=== PATIENT | female | born 1970 | race Caucasian/White ===

== ENCOUNTER 2016-06-09 03:21 | Emergency (ER) | payer MEDICAID ==
--- NOTE | 2016-06-09 03:34 | Emergency Department Record ---
History of Present Illness - General Chief Complaint: Neck Injury/Pain Stated Complaint: NECK PAIN Time Seen by Provider: 06/09/16 03:28 Source: Patient Mode of Arrival: Ambulatory Limitations: No limitations - History of Present Illness Initial Comments: 45 yo female presents to ED with a CC of sudden-onset neck pain posteriorly;y tonight while attempting to shift in her recliner tonight. Patient is s/p cervical fusion [address] Morris. Patient reports pain described as a "tearing sensation to the back of the neck" associated with numbness, tingling to the RUE. Patient denies fevers, chills, or recent illness. 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 Patient reports that she was wearing her neck brace when her pain began. MD Complaint: Neck pain Onset/Timin -: Minutes(s) Place: Home Severity: Severe Quality: Other ("tearing") Consistency: Constant Improves With: None Worsens With: None Context: Lifting Associated Symptoms: Numbness, Tingling Treatments Prior to Arrival: None - Related Data Home Medications Medication Instructions Recorded Confirmed Last Taken Docusate Sodium [Colace] 100 mg PO BID cap 06/05/16 Unknown Oxycodone HCl #110 06/05/16 Unknown Sennosides [Senokot] 2 tab PO QD tab 06/05/16 Unknown Allergies Allergy/AdvReac Type Severity Reaction Status Date / Time chlorhexidine gluconate Allergy Intermediate RASH Verified 06/09/16 03:24 [From Hibiclens] latex Allergy Intermediate RASH Verified 06/09/16 03:24 tetracycline [Tetracycline] Allergy Intermediate NAUSEA Verified 06/09/16 03:24 Penicillins Allergy Unknown PT UNSURE Verified 06/09/16 03:24 OF REACTION Review of Systems Constitutional: Denies: Chills, Fever, Malaise, Night sweats Eyes: Denies: Eye discharge, Eye pain ENT: Denies: Congestion, Ear pain, Epistaxis Respiratory: Denies: Cough, Dyspnea Cardiovascular: Denies: Chest pain, Dyspnea on exertion Endocrine: Denies: Fatigue, Heat or cold intolerance Gastrointestinal: Denies: Abdominal pain, Nausea, Vomiting Genitourinary: Denies: Abnormal menses, Incontinence, Retention Musculoskeletal: Reports: Neck pain. Denies: Arthralgia, Back pain Skin: Denies: Bruising, Change in color Neurological: Reports: Numbness, Tingling. Denies: Abnormal gait, Confusion, Headache, Seizure, Weakness Psychiatric: Reports: Anxiety Hematological/Lymphatic: Denies: Anemia, Blood Clots Past Medical History - SOCIAL HISTORY Smoking Status: Current every day smoker - RESPIRATORY Hx Respiratory Disorders: Yes Hx Asthma: Yes Hx Bronchitis: Yes Hx COPD: Yes - CARDIOVASCULAR Hx Cardio Disorders: Yes Hx Hypertension: Yes Comment:: high cholesterol - NEURO Hx Neuro Disorders: No - GI Hx GI Disorders: No - Hx Genitourinary Disorders: No - ENDOCRINE Hx Endocrine Disorders: No - MUSCULOSKELETAL Hx Musculoskeletal Disorders: Yes - PSYCH Hx Psych Problems: Yes Hx Depression: Yes - HEMATOLOGY/ONCOLOGY Hx Hematology/Oncology Disorders: No Physical Exam - General General Appearance: Alert, Oriented x3, Cooperative, Severe distress, Other ( patient is yelling on examination in pain intermittently) Limitations: No limitations - Head Head exam: Atraumatic, Normocephalic, Normal inspection Head exam detail: negative: Abrasion, Contusion, Ash's sign, General tenderness, Hematoma, Laceration - Eye Eye exam: Normal appearance. negative: Conjunctival injection, Periorbital swelling, Periorbital tenderness, Scleral icterus - ENT Ear exam: negative: Auricular hematoma, Auricular trauma Nasal Exam: negative: Active bleeding, Discharge, Dried blood, Foreign body Mouth exam: negative: Drooling, Laceration, Muffled voice, Tongue elevation - Neck Neck exam: Other (anterior incision site is clean, dry and intact, no pain with palpation of the posterior cervical region.). negative: Meningismus, Tenderness - Respiratory Respiratory exam: Normal lung sounds bilaterally. negative: Rales, Respiratory distress, Rhonchi, Stridor, Wheezes - Cardiovascular Cardiovascular Exam: Regular rate, Normal rhythm, Normal heart sounds - GI/Abdominal GI/Abdominal exam: Soft. negative: Rebound, Rigid, Tenderness - Rectal Rectal exam: Deferred - exam: Deferred - Extremities Extremities exam: Normal inspection. negative: Pedal edema, Tenderness - Back Back exam: Denies: CVA tenderness (R), CVA tenderness (L) - Neurological Neurological exam: Alert, CN II-XII intact, Normal gait, Oriented X3. negative : Motor sensory deficit - Psychiatric Psychiatric exam: Normal affect, Normal mood - Skin Skin exam: Normal color. negative: Abrasion Type of lesion: negative: abrasion Course - Reevaluation(s) Reevaluation #1: 06/09/16 03:34 [facility] contacted for consultation. Reevaluation #2: 06/09/16 03:37 Case was discussed with Abbie (On-call Neurosurgery), recommends transfer for evaluation and possible MRI imaging of the neck. Reevaluation #3: 06/09/16 04:[address] Zarate, will accept transfer ED-ED. Patient was updated on the plan for transfer. Disposition Disposition: Transfer Clinical Impression: Post-operative pain, Numbness and tingling Disposition: Acute Care Hospital Transfer Transfer To: [facility] Reason For Transfer: Post-operative pain, Neurosurgical evalaution of post- operative pain Accepting Physician: Elliot Leiva Time Discussed w/Accepting Physician: 04:14 Condition: (2) Stable Forms: Patient Portal Access Time of Disposition: 04:14
[2016-06-09] MEDS ORDERED: HYDROMORPHONE HCL 1 MG/ML CPJ IVP ONE (03:41)
[2016-06-09] MEDS ORDERED: LORAZEPAM 2 MG/ML VIAL IV ONE (03:41)
== END 2016-06-09 04:38 | disposition short-term general hospital (02) ==
LOC: ER 03:21
DX: G89.18 Other acute postprocedural pain (principal); M54.2 Cervicalgia; R20.0 Anesthesia of skin; Z98.1 Arthrodesis status
CPT/HCPCS: 99285 ×2; 96374; 96375; J2060; J1170

== ENCOUNTER 2018-06-07 13:43 | Emergency (ER) | payer MEDICAID ==
[2018-06-07] MEDS ORDERED: 0.9 % SODIUM CHLORIDE 1,000 ML BAG IV ONE (14:21)
--- NOTE | 2018-06-07 14:22 | Emergency Department Record ---
History of Present Illness - General Chief Complaint: Syncope Stated Complaint: SYNCOPE Time Seen by Provider: 06/07/18 13:53 Source: Patient Mode of Arrival: Ambulatory Limitations: No limitations [place]posure [place] [facility] [place] 21 [place] of Symptoms: No - History of Present Illness Initial Comments: The patient is here due to not feeling well for a day. The onset was last evening when she was sitting at home and noticed the onset of lightheadedness. She then put her legs up and elevated them and felt better. Later in the evening she did become nauseated and vomited. Today the lightheadedness did return at work and she describes it as a feeling of almost passing out. There are no balance issues, visual changes, arm or leg numbness, COOLEY, neck pain, weakness, CP, SOB, palpitations, or sweating. The patient denies any recent illnesses but did take Ropinrole last evening for her restless leg syndrome. She has taken it twice in the past but did not have any side affects. MD Complaint: [place] faint Onset/Timin -: Days(s) Prodromal Symptoms: Lightheaded, Nausea/vomiting, Vertigo Injuries Sustained Associated with Event: None Current Symptoms: None Treatments Prior to Arrival: None - [place] Coma Scale Eye Response: (4) Open spontaneously Motor Response: (6) Obeys commands Verbal Response: (5) Oriented [place] Total: 15 - Related Data Home Medications Medication Instructions Recorded Confirmed Last Taken Ibuprofen [Motrin] 800 mg PO Q8H PRN 06/07/18 06/07/18 06/07/18 Previous Rx's Medication Instructions Recorded Potassium Chloride 20 meq PO DAILY #7 [email or web address] 06/07/18 Allergies Allergy/AdvReac Type Severity Reaction Status Date / Time chlorhexidine gluconate Allergy Intermediate RASH Unverified 05/19/18 10:59 [From Hibiclens] latex Allergy Intermediate RASH Unverified 05/19/18 10:59 tetracycline [Tetracycline] Allergy Intermediate NAUSEA Unverified 05/19/18 10: 59 Penicillins Allergy Unknown PT UNSURE Unverified 05/19/18 10:59 OF REACTION codeine phosphate AdvReac nauseas Unverified 05/19/18 10:59 [From Tylenol-Codeine #3] and headache Travel Screening - Travel/Exposure Within Last 30 Days Have you traveled within the last 30 days?: No Review of Systems Constitutional: Denies: Chills, Fever Eyes: Denies: Eye discharge ENT: Denies: Congestion Respiratory: Denies: Cough, Dyspnea Cardiovascular: Denies: Arrhythmia, Chest pain Endocrine: Reports: Fatigue Gastrointestinal: Denies: Nausea Genitourinary: Denies: Dysuria Musculoskeletal: Denies: Arthralgia Neurological: Denies: Abnormal gait Past Medical History - SOCIAL HISTORY Smoking Status: Current every day smoker Alcohol Use: None Drug Use: None - RESPIRATORY Hx Respiratory Disorders: Yes Hx Asthma: Yes Hx Bronchitis: Yes Hx COPD: Yes - CARDIOVASCULAR Hx Cardio Disorders: Yes Hx Hypertension: Yes Comment:: high cholesterol - NEURO Hx Neuro Disorders: No - GI Hx GI Disorders: No - Hx Genitourinary Disorders: No - ENDOCRINE Hx Endocrine Disorders: No - MUSCULOSKELETAL Hx Musculoskeletal Disorders: Yes - PSYCH Hx Psych Problems: Yes Hx Depression: Yes - HEMATOLOGY/ONCOLOGY Hx Hematology/Oncology Disorders: No Family Medical History Any Significant Family History?: No Physical Exam - General General Appearance: Alert, Oriented x3, Cooperative, No acute distress - Head Head exam: Atraumatic, Normocephalic, Normal inspection - Eye Eye exam: Normal appearance, PERRL, EOMI - ENT Throat exam: Normal inspection. negative: Tonsillar erythema, Tonsillar exudate - Neck Neck exam: Normal inspection, Full ROM. negative: Lymphadenopathy, Meningismus , Tenderness - Respiratory Respiratory exam: Normal lung sounds bilaterally. negative: Respiratory distress - Cardiovascular Cardiovascular Exam: Regular rate, Normal rhythm, Normal heart sounds. negative : Diastolic murmur, Systolic murmur - GI/Abdominal GI/Abdominal exam: Soft, Normal bowel sounds. negative: Tenderness - Extremities Extremities exam: Normal inspection, Full ROM, Normal capillary refill. negative: Tenderness - Back Back exam: Reports: Normal inspection - Neurological Neurological exam: Alert, CN II-XII intact, Normal gait, Oriented X3, Reflexes normal, Other (Neg [place] and [place] exams.). negative: Abnormal gait, Altered , Motor sensory deficit - Skin Skin exam: negative: Rash Course Vital Signs 06/07/18 13:45 Temperature 98.0 F Pulse Rate 69 Respiratory 18 Rate Blood Pressure 166/97 Pulse Ox 100 - Reevaluation(s) Reevaluation #1: The patient is doing a lot better at this time. She is feeling much better and feels back to normal. 06/07/18 14:46 Reevaluation #2: The patient is doing a lot better at this time. She feels completely back to normal and is resting comfortably with no weakness or lightheadedness. I did discuss the low potassium with the patient and the need for a script at home. 2nd EKG: NSR at 56, Neg ST-T changes, Normal QT. 06/07/18 15:25 Reevaluation #3: The patient is feeling MUCH better at this time. She has no further lightheadedness or weakness. She is ambulating normally with no problems or issues. I did discuss the neg repeat cardiac tests and the need for potassium for home and F/U with her PCP next week. 06/07/18 17:27 Medical Decision Making - Data Complexity MDM Data: Labs Ordered and/or Reviewed, X-Ray Ordered and/or Reviewed, EKG Ordered and/or Reviewed - Lab Data Result diagrams: 06/07/18 14:10 06/07/18 14:10 - EKG Data EKG: No Acute Changes (NSR at 68, poss prolonged QT interval.) - Radiology Data Radiology results: Report reviewed (CXR: Neg.) Disposition Disposition: Discharge Clinical Impression: Lightheadedness Disposition: Home, Self-Care Condition: (2) Stable Instructions: Lightheadedness (ED) Additional Instructions: Please drink plenty of fluids and take the Potassium as directed. Please see your family doctor later this week for recheck and do not take your Restless Leg medicines again. Return to the ER for any worsening symptoms, pain, fever, or vomiting. Prescriptions: Potassium Chloride 20 meq PO DAILY #7 [email or web address] Forms: Patient Portal Access Time of Disposition: 17:30 Quality - Quality Measures Quality Measures: N/A - Blood Pressure Screening View Details: Yes Does Patient Have Any of the Following: No Blood Pressure Classification: Hypertensive Reading Systolic Measurement: 166 Diastolic Measurement: 97 Screening for High Blood Pressure: < First Hypertensive BP, F/U Documented > [ G8950] First Hypertensive Follow-up Interventions: Referral to alternative/primary care provider.
[2018-06-07 14:36] LABS: BASO % 0.4 % (0-6); EOS % 2.6 % (0-6); GRAN % 56.7 % (47-80); HEMATOCRIT 41.7 % (35.0-47.0); HEMOGLOBIN 14.6 gm/dl (11.6-16.0); LYMPH % 35.2 % (16-45); MEAN CORPUSCULAR HEMOGLOBIN 30.1 pg (27-33); MEAN PLATELET VOLUME 10.2 fl (7.4-10.4); MONO % 5.1 % (0-9); PLATELET COUNT 269 K/uL (130-400); RED BLOOD COUNT 4.85 M/uL (3.80-5.40); RED CELL DISTRIBUTION WIDTH 12.8 % (11.5-14.5); WHITE BLOOD COUNT W/O DIFF 5.5 K/uL (4.2-12.2)
[2018-06-07 14:37] LABS: URINE APPEARANCE CLEAR; URINE BILIRUBIN NEGATIVE (NEGATIVE); URINE BLOOD NEGATIVE (NEGATIVE); URINE COLOR YELLOW; URINE GLUCOSE (UA) NEGATIVE (NEGATIVE); URINE KETONE NEGATIVE (NEGATIVE); URINE LEUKOCYTE ESTERASE NEGATIVE (NEGATIVE); URINE NITRITE NEGATIVE (NEGATIVE); URINE PROTEIN NEGATIVE (NEGATIVE); URINE UROBILINOGEN 0.2 E.U./dL (0.20 - 1.00)
[2018-06-07 14:47] LABS: BLOOD UREA NITROGEN 15 mg/dL (6-20); CREATININE 0.8 mg/dL (0.5-0.9); EST GLOMERULAR FILTRATION RATE > 60 mL/min
[2018-06-07 14:50] LABS: GLUCOSE,RANDOM 119 mg/dL (74-109)
[2018-06-07 14:53] LABS: CREATINE PHOSPHOKINASE 185 U/L (26-192); PARTIAL THROMBOPLASTIN TIME 29.3 SECONDS (24.5-39.1); PROTHROMBIN TIME (PATIENT) 10.1 SECONDS (9.5-12.1)
[2018-06-07 14:55] LABS: CKMB 4.4 ng/mL (<3.77)
[2018-06-07] MEDS ORDERED: POTASSIUM CHLORIDE 20 MEQ TABLET PO ONE (15:05)
[2018-06-07 17:17] LABS: CKMB 3.8 ng/mL (<3.77)
--- NOTE | 2018-06-09 07:13 | RADIOLOGY REPORT ---
EXAM: CHEST HISTORY: COUGH, NEAR SYNCOPE. TECHNIQUE: Two views of the chest were obtained. Comparison: 02/08/09. FINDINGS: The heart is not enlarged and there is no mediastinal mass. There is no acute infiltrate or vascular congestion identified. Post surgical changes seen on the lower cervical spine. IMPRESSION: NO ACUTE CARDIAC OR PULMONARY ABNORMALITY. JOB NUMBER: [id number] AND [id number] [facility]
== END 2018-06-07 17:41 | disposition home or self-care (01) ==
LOC: ER 13:43
DX: R55 Syncope and collapse (principal); R11.2 Nausea with vomiting, unspecified; E87.6 Hypokalemia; I10 Essential (primary) hypertension; J44.9 Chronic obstructive pulmonary disease, unspecified; F17.210 Nicotine dependence, cigarettes, uncomplicated
CPT/HCPCS: 71046; 80048; 81003; 82550; 82553; 84484; 85025; 85379; 85610; 85730; 93005; 93010; 96360; 96361; 99284; J7030

== ENCOUNTER 2018-06-08 13:00 | Emergency (ER) | payer MEDICAID ==
--- NOTE | 2018-06-08 13:18 | Emergency Department Record ---
History of Present Illness - General Chief Complaint: Chest Pain Stated Complaint: CHEST TIGHTNESS Time Seen by Provider: 06/08/18 13:15 Source: Patient, RN notes reviewed Mode of Arrival: Ambulatory - History of Present Illness Initial Comments: patient has chest tightness and was in PT today and ribs out of place and they were put back in place and she felt better and than went to see Gail and she got lightheaded and was sent to the ED. Patient seen in the Ed yesterday for the sme thing. Patient is worried about having a CVA but no signs or symptoms of a CVA. Onset: Awoke with symptoms Pain Location: Substernal Consistency: Intermittent Improves With: Nothing Worsens With: Nothing Treatments Prior to Arrival: None - Related Data Previous Rx's Medication Instructions Recorded Potassium Chloride 20 meq PO DAILY #7 [email or web address] 06/07/18 Allergies Allergy/AdvReac Type Severity Reaction Status Date / Time chlorhexidine gluconate Allergy Intermediate RASH Verified 06/08/18 13:02 [From Hibiclens] latex Allergy Intermediate RASH Verified 06/08/18 13:02 tetracycline [Tetracycline] Allergy Intermediate NAUSEA Verified 06/08/18 13:02 Penicillins Allergy Unknown PT UNSURE Verified 06/08/18 13:02 OF REACTION codeine phosphate AdvReac nauseas Verified 06/08/18 13:02 [From Tylenol-Codeine #3] and headache Travel Screening - Travel/Exposure Within Last 30 Days Have you traveled within the last 30 days?: No Review of Systems Reviewed: No additional complaints except as noted below Constitutional: Reports: As per HPI. Denies: Chills, Fever, Malaise, Night sweats, Weakness, Weight change Eyes: Reports: As per HPI. Denies: Eye discharge, Eye pain, Photophobia, Vision change ENT: Reports: As per HPI. Denies: Congestion, Dental pain, Ear pain, Epistaxis , Hearing loss, Throat pain Respiratory: Reports: As per HPI. Denies: Cough, Dyspnea, Hemoptysis, Stridor, Wheezes Cardiovascular: Reports: As per HPI. Denies: Arrhythmia, Chest pain, Dyspnea on exertion, Edema, Murmurs, Orthopnea, Palpitations, Paroxysmal nocturnal dyspnea, Rheumatic Fever, Syncope Endocrine: Reports: As per HPI. Denies: Fatigue, Heat or cold intolerance, Polydipsia, Polyuria Gastrointestinal: Reports: As per HPI. Denies: Abdominal pain, Constipation, Diarrhea, Hematemesis, Hematochezia, Melena, Nausea, Vomiting Genitourinary: Reports: As per HPI. Denies: Abnormal menses, Discharge, Dyspareunia, Dysuria, Frequency, Hematuria, Incontinence, Retention, Urgency Musculoskeletal: Reports: As per HPI. Denies: Arthralgia, Back pain, Gout, Joint swelling, Myalgia, Neck pain Skin: Reports: As per HPI. Denies: Bruising, Change in color, Change in hair/ nails, Lesions, Pruritus, Rash Neurological: Reports: As per HPI. Denies: Abnormal gait, Confusion, Headache, Numbness, Paresthesias, Seizure, Tingling, Tremors, Vertigo, Weakness Psychiatric: Reports: As per HPI. Denies: Anxiety, Auditory hallucinations, Depression, Homicidal thoughts, Suicidal thoughts, Visual hallucinations Hematological/Lymphatic: Reports: As per HPI. Denies: Anemia, Blood Clots, Easy bleeding, Easy bruising, Swollen glands Past Medical History - SOCIAL HISTORY Smoking Status: Current every day smoker Alcohol Use: None Drug Use: None - RESPIRATORY Hx Respiratory Disorders: Yes Hx Asthma: Yes Hx Bronchitis: Yes Hx COPD: Yes - CARDIOVASCULAR Hx Cardio Disorders: Yes Hx Hypertension: Yes Comment:: high cholesterol - NEURO Hx Neuro Disorders: No - GI Hx GI Disorders: No - Hx Genitourinary Disorders: No - ENDOCRINE Hx Endocrine Disorders: No - MUSCULOSKELETAL Hx Musculoskeletal Disorders: Yes - PSYCH Hx Psych Problems: Yes Hx Depression: Yes - HEMATOLOGY/ONCOLOGY Hx Hematology/Oncology Disorders: No Family Medical History Any Significant Family History?: No Physical Exam - General General Appearance: Alert, Oriented x3, Cooperative, No acute distress - Head Head exam: Normal inspection - Eye Eye exam: Normal appearance, PERRL Pupils: Normal accommodation - ENT ENT exam: Normal exam, Mucous membranes moist, Normal external ear exam, Normal orophraynx, TM's normal bilaterally Ear exam: Normal external inspection. negative: External canal tenderness Nasal Exam: Normal inspection. negative: Discharge, Sinus tenderness Mouth exam: Normal external inspection, Tongue normal Teeth exam: Normal inspection. negative: Dental caries Throat exam: Normal inspection. negative: Tonsillar erythema, Tonsillar exudate - Neck Neck exam: Normal inspection, Full ROM. negative: Tenderness - Respiratory Respiratory exam: Normal lung sounds bilaterally. negative: Respiratory distress - Cardiovascular Cardiovascular Exam: Regular rate, Normal rhythm, Normal heart sounds - GI/Abdominal GI/Abdominal exam: Soft, Normal bowel sounds. negative: Tenderness - Rectal Rectal exam: Deferred - exam: Deferred - Extremities Extremities exam: Normal inspection, Full ROM, Normal capillary refill. negative: Tenderness - Back Back exam: Reports: Normal inspection, Full ROM. Denies: Muscle spasm, Rash noted, Tenderness - Neurological Neurological exam: Alert, Normal gait, Oriented X3, Reflexes normal - Psychiatric Psychiatric exam: Normal affect, Normal mood - Skin Skin exam: Dry, Intact, Normal color, Warm Course Vital Signs 06/08/18 13:03 Temperature 98.2 F Pulse Rate 76 Respiratory 18 Rate Blood Pressure 154/100 Pulse Ox 97 - Reevaluation(s) Reevaluation #1: feeling better, potasium is normal today so I told her not to take the potassium pills and have her potassium check by her primary Dr as an outpatient. 06/08/18 14:48 06/08/18 14:54 Medical Decision Making - Data Complexity MDM Data: Labs Ordered and/or Reviewed (trop t negative), EKG Ordered and/or Reviewed (NSR, no acute changes similiar to yesterdays EKG) - Lab Data Result diagrams: 06/08/18 13:30 06/08/18 13:30 Disposition Clinical Impression: Chest wall pain Disposition: Home, Self-Care Condition: (1) Good Instructions: Costochondritis (ED) Additional Instructions: follow up with gail her primary in 1-7 days tylenol for pain Forms: Patient Portal Access Time of Disposition: 14:57 Quality - Quality Measures Quality Measures: N/A - Blood Pressure Screening Does Patient Have Any of the Following: No Blood Pressure Classification: Hypertensive Reading Systolic Measurement: 154 Diastolic Measurement: 100 Screening for High Blood Pressure: < Pre-Hypertensive BP, F/U Documented > [ G8950] Pre-Hypertensive Follow-up Interventions: Referral to alternative/primary care provider.
[2018-06-08] MEDS ORDERED: ASPIRIN 81 MG CHEWABLE TABLET PO ONE (13:25)
[2018-06-08 13:45] LABS: BASO % 0.2 % (0-6); EOS % 2.4 % (0-6); GRAN % 59.9 % (47-80); HEMATOCRIT 39.9 % (35.0-47.0); HEMOGLOBIN 13.6 gm/dl (11.6-16.0); LYMPH % 31.5 % (16-45); MEAN CELL VOLUME 87.1 fl (81-97); MEAN CORPUSCULAR HEMOGLOBIN 29.7 pg (27-33); MEAN CORPUSCULAR HGB CONC 34.1 g/dl (32-36); PLATELET COUNT 252 K/uL (130-400); RED BLOOD COUNT 4.58 M/uL (3.80-5.40); RED CELL DISTRIBUTION WIDTH 12.8 % (11.5-14.5); WHITE BLOOD COUNT W/O DIFF 4.7 K/uL (4.2-12.2)
[2018-06-08 13:59] LABS: BLOOD UREA NITROGEN 14 mg/dL (6-20); CREATININE 0.7 mg/dL (0.5-0.9); EST GLOMERULAR FILTRATION RATE > 60 mL/min
[2018-06-08 14:02] LABS: GLUCOSE,RANDOM 122 mg/dL (74-109)
== END 2018-06-08 15:08 | disposition home or self-care (01) ==
LOC: ER 13:00
DX: R07.89 Other chest pain (principal); R20.0 Anesthesia of skin; R42 Dizziness and giddiness; J44.9 Chronic obstructive pulmonary disease, unspecified; I10 Essential (primary) hypertension; F17.210 Nicotine dependence, cigarettes, uncomplicated
CPT/HCPCS: 80048; 84484; 85025; 85730; 93005; 93010; 99284

== ENCOUNTER 2018-08-29 02:41 | Emergency (ER) | payer MEDICAID ==
--- NOTE | 2018-08-29 02:59 | Emergency Department Record ---
History of Present Illness - General Chief Complaint: Back Pain/Injury Stated Complaint: LOW BACK PAIN Time Seen by Provider: 08/29/18 02:42 Source: Patient Mode of Arrival: Ambulatory Limitations: No limitations - History of Present Illness Initial Comments: 47 yo female presents to ED for evaluation of right-sided low-back pain for the past two weeks. Patient denies specific injury and reports history of arthritis and a "bad back" that she routinely receives physical therapy and performs daily stretching for. Patient reports that she has tried cold packs, Motrin 800 mg, and stretching without improvement. Patient denies fevers, chills, dysuria, or hematuria symptoms however is concerned for "possible kidney stone". Patient denies lower extremity weakness, numbness, or tingling symptoms. MD Complaint: Back pain Onset/Timin -: Week(s) Similar Symptoms Previously: Yes Severity: Moderate Quality: Other ("feels tight") Consistency: Constant Improves With: Other (stretching) Worsens With: Deep breaths/cough, Movement Context: Unknown Associated Symptoms: Denies other symptoms Treatments Prior to Arrival: Cold therapy, NSAIDS - Related Data Home Medications Medication Instructions Recorded Confirmed Last Taken Beclomethasone Dipropionate [Qvar 1 inh IH DAILY 08/29/18 08/29/18 Unknown 80Mcg/100 Actuat Inhaler] Previous Rx's Medication Instructions Recorded Diazepam [Valium] 5 mg PO Q8H PRN #10 tab 08/29/18 Allergies Allergy/AdvReac Type Severity Reaction Status Date / Time chlorhexidine gluconate Allergy Intermediate RASH Verified 08/29/18 02:58 [From Hibiclens] latex Allergy Intermediate RASH Verified 08/29/18 02:58 tetracycline [Tetracycline] Allergy Intermediate NAUSEA Verified 08/29/18 02:58 Penicillins Allergy Unknown PT UNSURE Verified 08/29/18 02:58 OF REACTION codeine phosphate AdvReac nauseas Verified 08/29/18 02:58 [From Tylenol-Codeine #3] and headache Review of Systems Constitutional: Denies: Chills, Fever, Malaise, Night sweats Eyes: Denies: Eye discharge, Eye pain ENT: Denies: Congestion, Ear pain, Epistaxis Respiratory: Denies: Cough, Dyspnea Cardiovascular: Denies: Chest pain, Dyspnea on exertion Endocrine: Denies: Fatigue, Heat or cold intolerance Gastrointestinal: Denies: Abdominal pain, Nausea, Vomiting Genitourinary: Denies: Incontinence, Retention Musculoskeletal: Reports: Back pain. Denies: Arthralgia Skin: Denies: Bruising, Change in color, Change in hair/nails Neurological: Denies: Abnormal gait, Confusion, Headache, Seizure Psychiatric: Denies: Anxiety Hematological/Lymphatic: Denies: Anemia, Blood Clots Past Medical History - SOCIAL HISTORY Smoking Status: Current every day smoker Drug Use: None - RESPIRATORY Hx Respiratory Disorders: Yes Hx Asthma: Yes Hx Bronchitis: Yes Hx COPD: Yes - CARDIOVASCULAR Hx Cardio Disorders: Yes Hx Hypertension: Yes Comment:: high cholesterol - NEURO Hx Neuro Disorders: No - GI Hx GI Disorders: No - Hx Genitourinary Disorders: No - ENDOCRINE Hx Endocrine Disorders: No - MUSCULOSKELETAL Hx Musculoskeletal Disorders: Yes - PSYCH Hx Psych Problems: Yes Hx Depression: Yes - HEMATOLOGY/ONCOLOGY Hx Hematology/Oncology Disorders: No Physical Exam - General General Appearance: Alert, Oriented x3, Cooperative, Mild distress, Other (Ambulates comfortably on examination) Limitations: No limitations - Head Head exam: Atraumatic, Normocephalic, Normal inspection Head exam detail: negative: Abrasion, Contusion, Ash's sign, General tenderness, Hematoma, Laceration - Eye Eye exam: Normal appearance. negative: Conjunctival injection, Periorbital swelling, Periorbital tenderness, Scleral icterus - ENT Ear exam: negative: Auricular hematoma, Auricular trauma Nasal Exam: negative: Active bleeding, Discharge, Dried blood, Foreign body Mouth exam: negative: Drooling, Laceration, Muffled voice, Tongue elevation - Neck Neck exam: Normal inspection. negative: Meningismus, Tenderness - Respiratory Respiratory exam: Normal lung sounds bilaterally. negative: Rales, Respiratory distress, Rhonchi, Stridor - Cardiovascular Cardiovascular Exam: Regular rate, Normal rhythm, Normal heart sounds - GI/Abdominal GI/Abdominal exam: Soft. negative: Rebound, Rigid, Tenderness - Rectal Rectal exam: Deferred - exam: Deferred - Extremities Extremities exam: Normal inspection. negative: Pedal edema, Tenderness - Back Back exam: Reports: Paraspinal tenderness (Right lower lumbar region on examination). Denies: CVA tenderness (R), CVA tenderness (L) - Neurological Neurological exam: Alert, Normal gait, Oriented X3 - Psychiatric Psychiatric exam: Normal affect, Normal mood - Skin Skin exam: Normal color. negative: Abrasion Type of lesion: negative: abrasion Course - Reevaluation(s) Reevaluation #1: 08/29/18 03:00 Patient was seen and examined, denies previous history of kidney stones, but is concerned about possible kidney stones. Will obtain UA to evaluate for blood which may indicate the presence of kidney stone and re-evaluate. Reevaluation #2: 08/29/18 03:22 MRI Lumbar Spine: 03/12/18 Multi-level degenerative disc disease Moderate to severe bilateral foraminal narrowing at L5-S1, R>L Small broad based left posterolateral disc extrusion at L4-L5 level resulting in moderate neural foraminal narrowing. Stable tiny left paracentral disc protrusion at T12-L1 with no nerve root impingement. Reevaluation #3: 08/29/18 03:49 UA was reviewed and appears grossly unremarkable for an acute process. No hematuria is noted on examination. Patient appears stable for discharge with Valium as directed in addition to her Motrin 800 mg. Disposition Disposition: Discharge Clinical Impression: Lumbar strain Qualifiers: Encounter type: initial encounter Qualified Code(s): S39.012A - Strain of muscle, fascia and tendon of lower back, initial encounter Disposition: Home, Self-Care Condition: (2) Stable Instructions: Low Back Strain (ED) Additional Instructions: Return to ED if your symptoms worsen or if you have any concerns. Valium as directed. Follow-up with your family doctor in 3-5 days as directed. Prescriptions: Diazepam [Valium] 5 mg PO Q8H PRN #10 tab PRN Reason: Spasms Forms: Patient Portal Access Time of Disposition: 03:51 Quality - Quality Measures Quality Measures: N/A - Blood Pressure Screening Does Patient Have Any of the Following: No Blood Pressure Classification: Hypertensive Reading Systolic Measurement: 139 Diastolic Measurement: 93 Screening for High Blood Pressure: < First Hypertensive BP, F/U Documented > [G8950] First Hypertensive Follow-up Interventions: Referral to alternative/primary care provider.
[2018-08-29] MEDS ORDERED: ONDANSETRON 4 MG ODT TABLET SL ONE (03:01)
[2018-08-29] MEDS ORDERED: KETOROLAC 30 MG/ML VIAL IM ONE (03:41)
[2018-08-29 03:46] LABS: URINE APPEARANCE CLEAR; URINE BILIRUBIN NEGATIVE (NEGATIVE); URINE BLOOD NEGATIVE (NEGATIVE); URINE COLOR YELLOW; URINE GLUCOSE (UA) NEGATIVE (NEGATIVE); URINE KETONE NEGATIVE (NEGATIVE); URINE LEUKOCYTE ESTERASE NEGATIVE (NEGATIVE); URINE NITRITE NEGATIVE (NEGATIVE); URINE PROTEIN NEGATIVE (NEGATIVE); URINE UROBILINOGEN 0.2 E.U./dL (0.20 - 1.00)
[2018-08-29] MEDS ORDERED: DIAZEPAM 5 MG TABLET PO ONE (03:51)
== END 2018-08-29 04:12 | disposition home or self-care (01) ==
LOC: ER 02:41
DX: S39.012A Strain of muscle, fascia and tendon of lower back, initial encounter (principal); R11.0 Nausea; I10 Essential (primary) hypertension; J44.9 Chronic obstructive pulmonary disease, unspecified; F17.210 Nicotine dependence, cigarettes, uncomplicated; X58.XXXA Exposure to other specified factors, initial encounter
CPT/HCPCS: 99283; 96372; 99284; 81003; J3490; J1885

== ENCOUNTER 2019-03-28 23:35 | Emergency (ER) | payer MEDICAID ==
[2019-03-28] MEDS ORDERED: KETOROLAC 30 MG/ML VIAL IM ONE (23:55)
[2019-03-28] MEDS ORDERED: ORPHENADRINE CITRATE 60MG/2ML VIAL IM ONE (23:55)
--- NOTE | 2019-03-29 00:01 | Emergency Department Record ---
History of Present Illness - General Chief Complaint: Back Pain/Injury Stated Complaint: BACK PAIN Time Seen by Provider: 03/28/19 23:45 Source: Patient Mode of Arrival: Ambulatory Limitations: No limitations - History of Present Illness Initial Comments: The patient is here due to a flare up of her chronic back pain. She has a hx of lower spinal issues and is scheduled for surgery in 3 weeks in [place]. Earlier today she was on the floor wrapping presents and then later had a flare up of her chronic pain. The pain is in the low back with radiation to the L buttock. The pain feels more like a muscle spasm because it does come and go. There is intermittent radiation to the back of the L leg but no leg weakness, or any bowel or bladder incontinence or inability to go. The patient has had similar pain like tonights pain in the past and it is worse with sitting and twisting and bending. MD Complaint: Back pain Onset/Timin -: Hour(s) Similar Symptoms Previously: No Severity: Severe Severity scale (1-10): 9 Quality: Sharp, Stabbing, Tingling Consistency: Constant Improves With: None Worsens With: Movement, Sitting upright, Walking Context: Other Treatments Prior to Arrival: NSAIDS, Prescription analgesics Treatment Prior to Arrival Comment:: flexeril at home as needed, no relief with flexeril currently - Related Data Previous Rx's Medication Instructions Recorded Methylprednisolone [Medrol Dose 4 mg PO DAILY #1 tab.ds.pk 03/29/19 Pack] Allergies Allergy/AdvReac Type Severity Reaction Status Date / Time chlorhexidine gluconate Allergy Intermediate RASH Unverified 02/24/19 11:06 [From Hibiclens] latex Allergy Intermediate RASH Unverified 02/24/19 11:06 tetracycline [Tetracycline] Allergy Intermediate NAUSEA Unverified 02/24/19 11:06 Penicillins Allergy Unknown PT UNSURE Unverified 02/24/19 11:06 OF REACTION codeine phosphate AdvReac nauseas Unverified 02/24/19 11:06 [From Tylenol-Codeine #3] and headache Travel Screening - Travel/Exposure Within Last 30 Days Have you traveled within the last 30 days?: No - Travel Symptoms Symptom Screening: None Review of Systems Constitutional: Denies: Chills, Fever Eyes: Denies: Eye discharge ENT: Denies: Congestion Respiratory: Denies: Cough, Dyspnea Past Medical History - SOCIAL HISTORY Smoking Status: Current every day smoker Alcohol Use: None Drug Use: None - RESPIRATORY Hx Respiratory Disorders: Yes Hx Asthma: Yes Hx Bronchitis: Yes Hx COPD: Yes - CARDIOVASCULAR Hx Cardio Disorders: Yes Hx Hypertension: Yes Comment:: high cholesterol - NEURO Hx Neuro Disorders: No - GI Hx GI Disorders: No - Hx Genitourinary Disorders: No - ENDOCRINE Hx Endocrine Disorders: No - MUSCULOSKELETAL Hx Musculoskeletal Disorders: Yes - PSYCH Hx Psych Problems: Yes Hx Depression: Yes - HEMATOLOGY/ONCOLOGY Hx Hematology/Oncology Disorders: No Family Medical History Any Significant Family History?: Yes Hx Alcohol Use: Mother Hx Depression: Father, Mother Hx Diabetes: Father Hx Heart Disease: Father *Heart Comment: CAD/PVD/High cholesterol Hx Seizures: Brother/Sister *Seizure Comment: Asthma Physical Exam - General General Appearance: Alert, Oriented x3, Cooperative, No acute distress - Head Head exam: Atraumatic, Normocephalic, Normal inspection - Eye Eye exam: Normal appearance - Neck Neck exam: Normal inspection, Full ROM. negative: Tenderness - Respiratory Respiratory exam: Normal lung sounds bilaterally. negative: Respiratory distress - Cardiovascular Cardiovascular Exam: Regular rate, Normal rhythm, Normal heart sounds - GI/Abdominal GI/Abdominal exam: Soft, Normal bowel sounds. negative: Tenderness - Extremities Extremities exam: Normal inspection, Full ROM, Normal capillary refill, Other (Neg SLR bilaterally. ). negative: Tenderness - Back Back exam: Reports: Normal inspection. Denies: Full ROM, Paraspinal tenderness, Vertebral tenderness - Neurological Neurological exam: Alert, Normal gait (The patient is up walking with a normal and steady gait. ), Oriented X3, Reflexes normal (The patellar and achilles reflexes are 2+ and equal bilaterally. ). negative: Abnormal gait, Altered, Motor sensory deficit (The patient's motor and sensory exams are 5/5 and equal bilaterally to the lower extremities. ) - Skin Skin exam: negative: Rash Course Vital Signs 03/28/19 23:44 Temperature 97.7 F Pulse Rate [ 83 Left] Respiratory 18 Rate Blood Pressure 152/103 [Left] Pulse Ox 97 - Reevaluation(s) Reevaluation #1: The patient is doing a lot better at this time. Her pain is MUCH improved and she would like to leave and go home to sleep. 03/29/19 00:16 Reevaluation #2: I also advised the patient to cut way back on the Motrin when she is taking the Medrol Dose pack. She understands and will comply. 03/29/19 00:25 Reevaluation #3: The patient also is advised to check with her Spine Surgeon prior to taking the Medrol Dose pack to make sure he is OK with it. 03/29/19 00:30 Disposition Disposition: Discharge Clinical Impression: Chronic back pain Qualifiers: Back pain location: back pain in unspecified location Back pain laterality: unspecified Qualified Code(s): M54.9 - Dorsalgia, unspecified Disposition: Home, Self-Care Condition: (2) Stable Instructions: Muscle Spasm (ED) Additional Instructions: Please continue your muscle relaxer tomorrow but do not take the Motrin until the late afternoon. Please use the [place] pills if needed today. Start the Medrol Dose pack tomorrow. Return to the ER for any worsening pain, leg numbness, weakness or any bowel or bladder issues. Prescriptions: Methylprednisolone [Medrol Dose Pack] 4 mg PO DAILY #1 tab.ds.pk Forms: Patient Portal Access Time of Disposition: 00:20 Quality - Quality Measures Quality Measures: N/A - Blood Pressure Screening View Details: Yes Does Patient Have Any of the Following: No Blood Pressure Classification: Hypertensive Reading Systolic Measurement: 152 Diastolic Measurement: 103 Screening for High Blood Pressure: < First Hypertensive BP, F/U Documented > [G8950] First Hypertensive Follow-up Interventions: Referral to alternative/primary care provider.
[2019-03-29] MEDS ORDERED: HYDROCODONE/APAP 5/325MG TABLET PO ONE (00:17)
== END 2019-03-29 00:29 | disposition home or self-care (01) ==
LOC: ER 23:35
DX: G89.29 Other chronic pain (principal); M54.2 Cervicalgia; F17.210 Nicotine dependence, cigarettes, uncomplicated; I10 Essential (primary) hypertension
CPT/HCPCS: 96372; 99284; J1885; J2360

== ENCOUNTER 2019-05-20 16:04 | Emergency (ER) | payer MEDICAID ==
--- NOTE | 2019-05-20 16:32 | Emergency Department Record ---
History of Present Illness - General Stated complaint: POST OP VOMITING,[place] Time Seen by Provider: 05/20/19 16:22 Source: Patient, Family Mode of Arrival: Ambulatory Limitations: No limitations - History of Present Illness Initial comments: 48 yo female presents with nausea and vomiting that started about two hours ago. She reports she had spinal fusion surgery at [facility] about a week and a half ago. She reports to me that she was in the hospital for about a we ek. She had a cervical fusion surgery. She has been home about one week. She denies any fever or chills. No arm weakness. She has a headache that started in the hospital that has never fully gone away. She describes it has a dull frontal and occipital constant headache. Her last pain medication doses were at noon. She reports she did have a CSF leak with some neck swelling after surgery. The site of swelling is stable and unchanged since discharge home. She is swallowing without difficulty. No new arm pains that are different from pre surgery. Aura Chand is her PCP. Dr Cook is her NS. complaint: Nausea, Vomiting -: Hour(s) Description of Vomiting: Watery Description of Diarrhea: Water Severity: Moderate Quality: Aching Consistency: Constant Improves with: Other Worsens with: Other Context: Other Associated Symptoms: Headaches, Loss of appetite, Nausea/vomiting - Related Data Home Medications Medication Instructions Recorded Confirmed Last Taken Amlodipine Besylate [Norvasc] 10 mg PO DAILY 05/20/19 05/20/19 05/20/19 Oxycodone HCl [Oxy Ir] 5 mg PO ASDIR PRN 05/20/19 05/20/19 05/20/19 Oxycodone HCl/Acetaminophen 1 each PO Q4H PRN 05/20/19 05/20/19 05/20/19 [Oxycodone-Acetaminophen 5-325] Previous Rx's Medication Instructions Recorded Ondansetron [Zofran Odt] 4 mg PO Q4H #15 tab.rapdis 05/20/19 Allergies Allergy/AdvReac Type Severity Reaction Status Date / Time chlorhexidine gluconate Allergy Intermediate RASH Verified 05/20/19 17:38 [From Hibiclens] latex Allergy Intermediate RASH Verified 05/20/19 17:38 tetracycline [Tetracycline] Allergy Intermediate NAUSEA Verified 05/20/19 17:38 Penicillins Allergy Unknown PT UNSURE Verified 05/20/19 17:38 OF REACTION codeine phosphate AdvReac nauseas Verified 05/20/19 17:38 [From Tylenol-Codeine #3] and headache Review of Systems Constitutional: Denies: Chills, Fever, Malaise, Weakness Eyes: Denies: Eye discharge, Eye pain, Photophobia, Vision change ENT: Denies: Congestion, Throat pain Respiratory: Denies: Cough, Dyspnea Cardiovascular: Denies: Chest pain Endocrine: Denies: Fatigue Gastrointestinal: Reports: Nausea, Vomiting. Denies: Abdominal pain, Diarrhea Genitourinary: Denies: Dysuria, Urgency Musculoskeletal: Reports: As per HPI, Neck pain. Denies: Arthralgia, Back pain Skin: Denies: Bruising, Change in color, Rash Neurological: Reports: Headache. Denies: Abnormal gait, Confusion, Numbness, Tingling, Tremors, Vertigo, Weakness Psychiatric: Denies: Anxiety Hematological/Lymphatic: Denies: Easy bleeding, Easy bruising Past Medical History - SOCIAL HISTORY Smoking Status: Current every day smoker Drug Use: None - RESPIRATORY Hx Respiratory Disorders: Yes Hx Asthma: Yes Hx Bronchitis: Yes Hx COPD: Yes - CARDIOVASCULAR Hx Cardio Disorders: Yes Hx Hypertension: Yes Comment:: high cholesterol - NEURO Hx Neuro Disorders: No - GI Hx GI Disorders: No - Hx Genitourinary Disorders: No - ENDOCRINE Hx Endocrine Disorders: No - MUSCULOSKELETAL Hx Musculoskeletal Disorders: Yes - PSYCH Hx Psych Problems: Yes Hx Depression: Yes - HEMATOLOGY/ONCOLOGY Hx Hematology/Oncology Disorders: No Family Medical History Hx Alcohol Use: Mother Hx Depression: Father, Mother Hx Diabetes: Father Hx Heart Disease: Father *Heart Comment: CAD/PVD/High cholesterol Hx Seizures: Brother/Sister *Seizure Comment: Asthma Physical Exam - General General Appearance: Alert, Oriented x3, Cooperative, No acute distress Limitations: No limitations - Head Head exam: Atraumatic, Normal inspection - Eye Eye exam: Normal appearance, PERRL, EOMI. negative: Conjunctival injection, Scleral icterus - ENT ENT exam: Normal exam, Mucous membranes moist Ear exam: Normal external inspection Nasal Exam: Normal inspection Mouth exam: Normal external inspection - Neck Neck exam: Other (Asymmetric swelling of the anterior neck, no erythema, no signs of infection, no fluid leakage). negative: Normal inspection - Respiratory Respiratory exam: Normal lung sounds bilaterally. negative: Rhonchi, Stridor, Wheezes - Cardiovascular Cardiovascular Exam: Regular rate, Normal rhythm, Normal heart sounds - GI/Abdominal GI/Abdominal exam: Soft. negative: Tenderness - Rectal Rectal exam: Deferred - exam: Deferred - Extremities Extremities exam: Normal inspection, Full ROM. negative: Calf tenderness, Pedal edema, Tenderness - Back Back exam: Denies: CVA tenderness (R), CVA tenderness (L), Tenderness - Neurological Neurological exam: Alert, CN II-XII intact, Normal gait, Oriented X3, Other (strong customs compliance manager, no ataxia, no weakness of customs compliance manager, OK sign, biceps). negative: Abnormal gait, Altered, Motor sensory deficit - Psychiatric Psychiatric exam: Normal affect, Normal mood. negative: Agitated, Anxious - Skin Skin exam: Dry, Intact, Normal color, Warm. negative: Erythema Course Vital Signs 05/20/19 16:19 Temperature 98.2 F Pulse Rate [ 79 Pulse Ox Probe] Respiratory 18 Rate Blood Pressure 145/99 [Left Arm] Pulse Ox 97 - Reevaluation(s) Reevaluation #1: 05/20/19 16:44 EMR was reviewed On 05/16/2019 follow up with PCP Aura Pruitt. C5-6 and C6-7 hardware removal and cervical discectomy and fusion. Notes headaches from surgery and concerns for spinal fluid leak. On 03/21/19 CT of the cervical spine reviewed report. On 11/05/18 MRI reviewed report [facility] was reviewed. No records available form [facility] will be contacted to try to obtain records. The patient reports a constant headache that has never resolved since her s urgery date. She states her neck is healing without any new pain or swelling. She denies any new pain, weakness, or numbness in the arms. No fevers. No chills. No changes in bowel or bladder function. The patient's neurologic examination is intact as tested. She will be treated symptomatically and will obtain records from [facility] to clarify her procedure and hospital course. No obvious, immediate indication for emergent neuro-imaging. She does not acutely appear ill or in distress. 05/20/19 17:09 Discharge Summary from [facility] received. Dr Cook was her attending. Admitted 05/09/19 Discharged 05/15/2019. Drain pulled 05/11/19. Lumbar drain 05/12/19. Neck swelling noted 05/12/19. Symptoms remained stable with slow improvement DC on POD#6. 05/20/19 17:29 On recheck the patient is doing better with tolerable nausea and headache. No new complaints. We reviewed the hospital course together for he recollection and accuracy. 05/20/19 18:21 The patient expresses that she is significantly better with well controlled symptoms. We discussed the results of the tests and questions were answered. The patient is doing well and is comfortable with DC to follow up as scheduled with her doctors The headache is unchanged from when she was at [facility] without new or concerning features, no neurologic changes on examination, she is well appearing with well controlled nausea. She is stable for DC home to follow up with her doctors. She agrees with the plan for DC home with outpatient follow up We discussed at length reasons to immediately return to the ED. Medical Decision Making - Lab Data Result diagrams: 05/20/19 17:00 05/20/19 17:00 Disposition Disposition: Discharge Clinical Impression: Post-operative pain Nausea and vomiting Qualifiers: Vomiting type: unspecified Vomiting Intractability: unspecified Qualified Code(s): R11.2 - Nausea with vomiting, unspecified Disposition: Home, Self-Care Condition: (2) Stable Instructions: Acute Nausea and Vomiting (ED) Additional Instructions: Review this ER visit and the tests performed with your doctor Follow up as scheduled or earlier if available Return to the ER for a recheck immediately if worse, any new concerns or questions Take the prescriptions provided as directed Prescriptions: Ondansetron [Zofran Odt] 4 mg PO Q4H #15 tab.rapdis Forms: Patient Portal Access Time of Disposition: 18:25 Quality - Quality Measures Quality Measures: N/A - Blood Pressure Screening Does Patient Have Any of the Following: No Blood Pressure Classification: Pre-Hypertensive BP Reading Systolic Measurement: 145 Diastolic Measurement: 87 Screening for High Blood Pressure: < Pre-Hypertensive BP, F/U Documented > [G8950] Pre-Hypertensive Follow-up Interventions: Referral to alternative/primary care provider.
[2019-05-20] MEDS ORDERED: MORPHINE SULFATE 5 MG/ML VIAL IVP ONE (16:33)
[2019-05-20] MEDS ORDERED: 0.9 % SODIUM CHLORIDE 1000ML 1,000 ML IV ONE (16:33)
[2019-05-20] MEDS ORDERED: ONDANSETRON HCL IV 4 MG/2 ML VIAL IVP ONE ×2 (16:33→17:29)
[2019-05-20 17:11] LABS: BASO % 0.6 % (0-6); GRAN % 72.5 % (47-80); HEMATOCRIT 41.3 % (35.0-47.0); LYMPH % 18.8 % (16-45); MEAN CORPUSCULAR HEMOGLOBIN 28.8 pg (27-33); MEAN CORPUSCULAR HGB CONC 33.9 g/dl (32-36); MEAN PLATELET VOLUME 9.2 fl (7.4-10.4); MONO % 7.1 % (0-9); PLATELET COUNT 268 K/uL (130-400); RED BLOOD COUNT 4.86 M/uL (3.80-5.40); RED CELL DISTRIBUTION WIDTH 12.9 % (11.5-14.5)
[2019-05-20 17:24] LABS: BLOOD UREA NITROGEN 11 mg/dL (6-20); CREATININE 0.6 mg/dL (0.5-0.9); EST GLOMERULAR FILTRATION RATE > 60 mL/min
[2019-05-20 17:27] LABS: GLUCOSE,RANDOM 129 mg/dL (74-109)
[2019-05-20] MEDS ORDERED: KETOROLAC 30 MG/ML VIAL IVP ONE (17:29)
[2019-05-20] MEDS ORDERED: ONDANSETRON 4 MG ODT TABLET SL ONE (18:24)
[2019-05-20] MEDS: ONDANSETRON 4 MG ODT TABLET SL ONE (18:41)
== END 2019-05-20 18:49 | disposition home or self-care (01) ==
LOC: ER 16:04
DX: G89.18 Other acute postprocedural pain (principal); R51 Headache; R11.2 Nausea with vomiting, unspecified; I10 Essential (primary) hypertension; F17.210 Nicotine dependence, cigarettes, uncomplicated; Z98.1 Arthrodesis status
CPT/HCPCS: 99284 ×2; 96374; 96375; 96361; 85025; 80048; J1885; J2405; J7030